=== PATIENT | female | born 1945 | race Two or more races ===

== ENCOUNTER 2017-12-05 09:06 | Emergency (ER) | payer MEDICARE ==
[~2017-12-05] VITALS: Ht 170.2 cm; Wt 70.3 kg
[2017-12-05 09:15] VITALS: BP 119/76
== END 2017-12-05 09:16 | disposition left against medical advice (07) ==
LOC: ER 09:06
DX: R55 Syncope and collapse (principal); Z53.21 Procedure and treatment not carried out due to patient leaving prior to being seen by health care provider